=== PATIENT | female | born 1995 | race American Indian/Alaskan Native ===

== ENCOUNTER 2021-04-02 09:30 | Outpatient (CLI) | payer OTHER ==
--- NOTE | 2021-04-02 10:30 | XRay Report ---
Lumbar spine 3 views INDICATION: Back pain FINDINGS: Alignment appears normal. No compression fractures seen. No subluxation. Sacrum and sacroil iac joints appear normal. Signer Name: Lew Garner MD Signed: 04/02/2021 10:25 AM Workstation Name: [id number]
== END 2021-04-02 09:31 | disposition home or self-care (01) ==
LOC: XRAY 09:30
PROVIDERS: ATTEND Internal Medicine
DX: M54.50 Low back pain, unspecified (principal)
CPT/HCPCS: 72100